=== PATIENT | male | born 1990 | race Two or more races ===

== ENCOUNTER 2016-10-28 23:57 | Emergency (ER) | payer OTHER ==
[~2016-10-28] VITALS: Ht 170.2 cm; Wt 121.1 kg
--- NOTE | 2016-10-29 00:25 | NUR ---
PT [facility]. PT IS IN CUSTODY. PT IS C/O LLE EDEMA, ABRASION AND REDNESS. PT AMBULATED TO BED #9 WITH A STEADY GAIT. VSS. PT'S HANDCUFFS WERE REMOVED.
--- NOTE | 2016-10-29 01:03 | NUR ---
Patient discharged to [facility] in stable condition. Written and verbal after care instructions given. Patient verbalizes understanding of instruction AND RX. PT AMBULATED OUT WITH A STEADY GAIT IN HANDCUFFS. VSS.
[2016-10-29 01:05] VITALS: BP 148/89
== END 2016-10-29 01:06 ==
LOC: ER 10-29
DX: R60.0 Localized edema (principal); I10 Essential (primary) hypertension; B35.4 Tinea corporis
CPT/HCPCS: A4606; Z7610